=== PATIENT | male | born 1980 ===

== ENCOUNTER 2017-05-17 01:17 | Inpatient (IN) | payer OTHER ==
[2017-05-17 01:58] LABS: ADD MAN DIFF? NO
[2017-05-17] MEDS: ONDANSETRON 4 MG INJ IV ×4 (01:59→16:38)
[2017-05-17 02:00] LABS: WHITE BLOOD COUNT 16.5 10^3/ul (4.8-10.8)
[2017-05-17 02:00] LABS: BASOPHIL # 0.1 10^3/ul (0.0-0.1); BASOPHILS % 0.3 % (0.0-2.0); EOSINOPHILS # 0.1 10^3/ul (0.0-0.5); EOSINOPHILS % 0.3 % (0.0-7.0); HEMATOCRIT 46.4 % (42.0-52.0); HEMOGLOBIN 16.1 g/dl (14.0-18.0); LYMPHOCYTES # 2.2 10^3/ul (0.8-2.9); LYMPHOCYTES % 13.4 % (15.0-51.0); MEAN CORPUSCULAR HEMOGLOBIN 31.2 pg (29.0-33.0); MEAN CORPUSCULAR HGB CONC 34.7 g/dl (32.0-37.0); MEAN CORPUSCULAR VOLUME 89.9 fl (82.0-101.0); MEAN PLATELET VOLUME 9.5 fl (7.4-10.4); MONOCYTE # 0.9 10^3/ul (0.3-0.9); MONOCYTES % 5.4 % (0.0-11.0); NEUTROPHIL # 13.2 10^3/ul (1.6-7.5); NEUTROPHILS % 80.1 % (39.0-77.0); PLATELET COUNT 408 10^3/UL (140-415); RED BLOOD COUNT 5.16 10^6/ul (4.70-6.10); RED CELL DISTRIBUTION WIDTH 12.6 % (11.5-14.5)
[2017-05-17 02:24] LABS: ALANINE AMINOTRANSFERASE 96 IU/L (13-69); ALBUMIN 5.7 g/dl (3.3-4.9); ALBUMIN/GLOBULIN RATIO 1.26; ALKALINE PHOSPHATASE 134 IU/L (42-121); ANION GAP 26 (8-16); ASPARTATE AMINO TRANSFERASE 111 IU/L (15-46); BILIRUBIN,INDIRECT 1.3 mg/dl (0-1.1); BILIRUBIN,TOTAL 1.3 mg/dl (0.2-1.3); BLOOD UREA NITROGEN 22 mg/dl (7-20); CALCIUM 12.2 mg/dl (8.4-10.2); CARBON DIOXIDE 24 mmol/L (21-31); CHLORIDE 98 mmol/L (97-110); GLUCOSE 101 mg/dl (70-220); LIPASE 1370 U/L (23-300); POTASSIUM 3.2 mmol/L (3.5-5.1); SODIUM 145 mmol/L (135-144); TOTAL PROTEIN 10.2 g/dl (6.1-8.1)
[2017-05-17 02:29] LABS: ETHANOL < 10.0 mg/dl
[2017-05-17] MEDS: SOD CHLORIDE 0.9% 1,000 ML IV ×4 (02:29→22:27)
[2017-05-17] MEDS: LOPERAMIDE 2 MG CAP PO ×2 (02:30→02:32)
[2017-05-17] MEDS: HYDROmorphONE 1 MG/ML SYG IV ×2 (03:20→04:32)
[2017-05-17] MEDS: MEROPENEM 500MG/50 ML (PMX) 50 ML IVPB (04:38)
[2017-05-17] MEDS: POTASSIUM CHLORIDE 50 ML IVPB ×4 (05:02→10:59)
[2017-05-17] MEDS ORDERED: ACETAMINOPHEN 325 MG TAB PO (06:00)
[2017-05-17] MEDS ORDERED: NACL 0.9% 3 ML SYG IV (06:00)
[2017-05-17] MEDS: morphine 2 MG INJ IV ×3 (09:16→19:32)
[2017-05-17] MEDS ORDERED: METHADONE 10 MG TAB PO (10:30)
[2017-05-17] MEDS: METHADONE (1 MG/ML 5 ML PO UD SYG) PO ×2 (12:03→12:30)
[2017-05-17 12:14] LABS: LIPASE 302 U/L (23-300)
[2017-05-17 12:14] LABS: AMYLASE 147 U/L (11-123)
[2017-05-17] MEDS: METOCLOPRAMIDE 10 MG INJ IV (12:18)
[2017-05-17] MEDS: MULTIVITAMINS 10 ML, THIAMINE 100 MG, FOLIC ACID 1 MG in SOD CHLORIDE 0.9% 1,000 ML IVPB (13:01)
[2017-05-17] MEDS: LORAZEPAM 2 MG INJ IV (13:01)
[2017-05-17] MEDS: PANTOPRAZOLE IV 80 MG in SOD CHLORIDE 0.9% 100 ML IV (15:01)
[2017-05-17 15:32] LABS: ABNORMAL IP MESSAGE 1; HEMATOCRIT 44.6 % (42.0-52.0); HEMOGLOBIN 15.1 g/dl (14.0-18.0); MEAN CORPUSCULAR HEMOGLOBIN 31.4 pg (29.0-33.0); MEAN CORPUSCULAR HGB CONC 33.9 g/dl (32.0-37.0); MEAN CORPUSCULAR VOLUME 92.7 fl (82.0-101.0); MEAN PLATELET VOLUME 10.3 fl (7.4-10.4); POSITIVE DIFF @See below; RED BLOOD COUNT 4.81 10^6/ul (4.70-6.10); RED CELL DISTRIBUTION WIDTH 13.1 % (11.5-14.5)
[2017-05-17 15:32] LABS: WHITE BLOOD COUNT 20.7 10^3/ul (4.8-10.8)
[2017-05-17 15:38] LABS: PLATELET COUNT 326 10^3/UL (140-415)
[2017-05-17 15:39] LABS: ADD MAN DIFF? YES
[2017-05-17 15:49] LABS: ALANINE AMINOTRANSFERASE 78 IU/L (13-69); ALBUMIN 5.3 g/dl (3.3-4.9); ALBUMIN/GLOBULIN RATIO 1.43; ALKALINE PHOSPHATASE 106 IU/L (42-121); ANION GAP 28 (8-16); ASPARTATE AMINO TRANSFERASE 73 IU/L (15-46); BILIRUBIN,INDIRECT 0.7 mg/dl (0-1.1); BILIRUBIN,TOTAL 0.7 mg/dl (0.2-1.3); BLOOD UREA NITROGEN 12 mg/dl (7-20); CALCIUM 10.4 mg/dl (8.4-10.2); CARBON DIOXIDE 14 mmol/L (21-31); CHLORIDE 105 mmol/L (97-110); CREATININE 0.87 mg/dl (0.61-1.24); GLUCOSE 114 mg/dl (70-220); POTASSIUM 3.9 mmol/L (3.5-5.1); SODIUM 143 mmol/L (135-144)
[2017-05-17 16:09] LABS: BAND NEUTROPHILS #M 0.4 10^3/ul (0.0-0.6); BAND NEUTROPHILS % (M) 2 % (0-4); LYMPHOCYTES #M 0.4 10^3/ul (0.8-2.9); LYMPHOCYTES % (M) 2 % (15-51); PLATELET ESTIMATE INCREASED; SEGMENTED NEUTROPHILS (M) % 96 % (39-77); SMUDGE%M 3 % (0-0)
[2017-05-17 17:56] LABS: ADD UMIC YES; UR ASCORBIC ACID NEGATIVE (NEGATIVE); UR BACTERIA FEW /HPF (NONE SEEN); UR BILIRUBIN (Dip) NEGATIVE (NEGATIVE); UR BLOOD (Dip) NEGATIVE (NEGATIVE); UR CLARITY CLEAR (CLEAR); UR COLOR YELLOW (YELLOW); UR GLUCOSE (Dip) NEGATIVE (NEGATIVE); UR KETONES (Dip) 2+ mg/dL (NEGATIVE); UR LEUKOCYTE ESTERASE (Dip) NEGATIVE Leu/ul (NEGATIVE); UR MUCUS FEW /HPF (NONE SEEN); UR NITRITE (Dip) NEGATIVE (NEGATIVE); UR RBC 0 /HPF (0-5); UR SPECIFIC GRAVITY (Dip) 1.027 (1.003-1.030); UR TOTAL PROTEIN (Dip) 1+ mg/dl (NEGATIVE); UR UROBILINOGEN (Dip) NEGATIVE (NEGATIVE); UR WBC 1 /HPF (0-5)
[2017-05-17 18:25] LABS: AMPHETAMINE/METHAMPHETAMINE POSITIVE (NEGATIVE); BARBITURATES Negative (NEGATIVE); BENZODIAZEPINES Negative (NEGATIVE); CANNABINOIDS Negative (NEGATIVE); COCAINE Negative (NEGATIVE); OPIATES Positive (NEGATIVE)
[2017-05-18] MEDS: morphine 2 MG INJ IV ×3 (00:26→14:57)
[2017-05-18] MEDS: PANTOPRAZOLE IV 80 MG in SOD CHLORIDE 0.9% 100 ML IV ×3 (03:49→19:44)
[2017-05-18] MEDS: ONDANSETRON 4 MG INJ IV (04:48)
[2017-05-18 05:04] LABS: ADD MAN DIFF? NO
[2017-05-18 05:17] LABS: HEMOGLOBIN A1C 5.3 % (0-5.9)
[2017-05-18 05:20] LABS: WHITE BLOOD COUNT 19.6 10^3/ul (4.8-10.8)
[2017-05-18 05:20] LABS: BASOPHILS % 0.1 % (0.0-2.0); HEMATOCRIT 40.1 % (42.0-52.0); HEMOGLOBIN 13.5 g/dl (14.0-18.0); LYMPHOCYTES # 1.2 10^3/ul (0.8-2.9); LYMPHOCYTES % 6.2 % (15.0-51.0); MEAN CORPUSCULAR HEMOGLOBIN 31.8 pg (29.0-33.0); MEAN CORPUSCULAR HGB CONC 33.7 g/dl (32.0-37.0); MEAN CORPUSCULAR VOLUME 94.4 fl (82.0-101.0); MEAN PLATELET VOLUME 9.9 fl (7.4-10.4); MONOCYTE # 0.9 10^3/ul (0.3-0.9); MONOCYTES % 4.6 % (0.0-11.0); NEUTROPHIL # 17.4 10^3/ul (1.6-7.5); NEUTROPHILS % 88.6 % (39.0-77.0); PLATELET COUNT 329 10^3/UL (140-415); RED BLOOD COUNT 4.25 10^6/ul (4.70-6.10); RED CELL DISTRIBUTION WIDTH 13.6 % (11.5-14.5)
[2017-05-18 05:37] LABS: ALANINE AMINOTRANSFERASE 64 IU/L (13-69); ALBUMIN 4.8 g/dl (3.3-4.9); ALKALINE PHOSPHATASE 96 IU/L (42-121); ANION GAP 20 (8-16); ASPARTATE AMINO TRANSFERASE 58 IU/L (15-46); BLOOD UREA NITROGEN 13 mg/dl (7-20); CALCIUM 10.2 mg/dl (8.4-10.2); CARBON DIOXIDE 21 mmol/L (21-31); CHLORIDE 107 mmol/L (97-110); CHOL/HDL RATIO 3.5 RATIO; CHOLESTEROL 206 mg/dl (100-200); CREATININE 0.92 mg/dl (0.61-1.24); GLUCOSE 102 mg/dl (70-220); HDL CHOLESTEROL 58 mg/dl (28-63); LDL CHOLESTEROL,CALCULATED 129 mg/dl; MAGNESIUM 2.1 mg/dl (1.7-2.5); POTASSIUM 3.3 mmol/L (3.5-5.1); SODIUM 145 mmol/L (135-144); TOTAL PROTEIN 8.8 g/dl (6.1-8.1); TRIGLYCERIDES 93 mg/dl (0-149)
[2017-05-18] MEDS: SOD CHLORIDE 0.9% 1,000 ML IV ×2 (05:56→06:33)
[2017-05-18 05:58] LABS: LACTIC ACID 1.2 mmol/L (0.5-2.0)
[2017-05-18 06:05] LABS: THYROID STIMULATING HORMONE 0.095 MIU/L (0.465-4.680)
[2017-05-18 06:13] LABS: INR 0.97
[2017-05-18 06:14] LABS: PARTIAL THROMBOPLASTIN TIME 26.9 Sec (25.0-35.0)
[2017-05-18] MEDS: MULTIVITAMINS 10 ML, THIAMINE 100 MG, FOLIC ACID 1 MG in SOD CHLORIDE 0.9% 1,000 ML IVPB (08:42)
[2017-05-18] MEDS: METHADONE (1 MG/ML 5 ML PO UD SYG) PO (08:42)
[2017-05-18] MEDS: METOCLOPRAMIDE 10 MG INJ IV (08:43)
[2017-05-18 09:14] LABS: LIPASE 229 U/L (23-300)
[2017-05-18 09:14] LABS: AMYLASE 82 U/L (11-123)
[2017-05-18 09:32] LABS: FREE T4 (FREE THYROXINE) 1.07 ng/dl (0.79-2.35)
[2017-05-18] MEDS: PIPER-TAZO 3.375 GM IV (PMX) 100 ML IVPB ×3 (10:25→21:41)
[2017-05-18] MEDS: DIATR MEGLU/DIATRIZOATE SODIUM 120 ML BTL ×2 (10:47→11:31)
[2017-05-18] MEDS: POTASSIUM CHLORIDE 50 ML IVPB ×2 (13:51→15:43)
[2017-05-19] MEDS: PIPER-TAZO 3.375 GM IV (PMX) 100 ML IVPB ×3 (05:03→22:54)
[2017-05-19 05:09] LABS: ADD MAN DIFF? NO
[2017-05-19 05:21] LABS: BASOPHILS % 0.3 % (0.0-2.0); EOSINOPHILS % 0.3 % (0.0-7.0); HEMATOCRIT 38.9 % (42.0-52.0); HEMOGLOBIN 12.9 g/dl (14.0-18.0); LYMPHOCYTES # 2.2 10^3/ul (0.8-2.9); LYMPHOCYTES % 18.7 % (15.0-51.0); MEAN CORPUSCULAR HEMOGLOBIN 31.3 pg (29.0-33.0); MEAN CORPUSCULAR HGB CONC 33.2 g/dl (32.0-37.0); MEAN CORPUSCULAR VOLUME 94.4 fl (82.0-101.0); MEAN PLATELET VOLUME 10.1 fl (7.4-10.4); MONOCYTE # 0.7 10^3/ul (0.3-0.9); MONOCYTES % 5.4 % (0.0-11.0); NEUTROPHILS % 74.8 % (39.0-77.0); PLATELET COUNT 254 10^3/UL (140-415); RED BLOOD COUNT 4.12 10^6/ul (4.70-6.10)
[2017-05-19] MEDS: PANTOPRAZOLE IV 80 MG in SOD CHLORIDE 0.9% 100 ML IV (05:41)
[2017-05-19 05:45] LABS: ALANINE AMINOTRANSFERASE 51 IU/L (13-69); ALBUMIN 3.8 g/dl (3.3-4.9); ALBUMIN/GLOBULIN RATIO 1.35; ALKALINE PHOSPHATASE 70 IU/L (42-121); AMYLASE 126 U/L (11-123); ANION GAP 14 (8-16); ASPARTATE AMINO TRANSFERASE 39 IU/L (15-46); BILIRUBIN,INDIRECT 0.6 mg/dl (0-1.1); BILIRUBIN,TOTAL 0.6 mg/dl (0.2-1.3); BLOOD UREA NITROGEN 13 mg/dl (7-20); CALCIUM 9.3 mg/dl (8.4-10.2); CARBON DIOXIDE 24 mmol/L (21-31); CHLORIDE 103 mmol/L (97-110); CREATININE 0.84 mg/dl (0.61-1.24); GLUCOSE 163 mg/dl (70-220); LIPASE 434 U/L (23-300); POTASSIUM 3.4 mmol/L (3.5-5.1); SODIUM 138 mmol/L (135-144); TOTAL PROTEIN 6.6 g/dl (6.1-8.1)
[2017-05-19 05:47] LABS: MAGNESIUM 1.7 mg/dl (1.7-2.5)
[2017-05-19 05:47] LABS: PHOSPHORUS 2.3 mg/dl (2.5-4.9)
[2017-05-19] MEDS: MULTIVITAMINS 10 ML, THIAMINE 100 MG, FOLIC ACID 1 MG in SOD CHLORIDE 0.9% 1,000 ML IVPB (09:14)
[2017-05-19] MEDS: METHADONE (1 MG/ML 5 ML PO UD SYG) PO (09:15)
[2017-05-19] MEDS: FENTAnyl 50 MCG/ML VIAL (18:24)
[2017-05-19] MEDS: PROPOFOL 20 ML (18:24)
[2017-05-20] MEDS: PANTOPRAZOLE IV 80 MG in SOD CHLORIDE 0.9% 100 ML IV ×2 (00:35→11:13)
[2017-05-20 05:26] LABS: ADD MAN DIFF? NO
[2017-05-20 05:32] LABS: BASOPHILS % 0.3 % (0.0-2.0); EOSINOPHILS # 0.1 10^3/ul (0.0-0.5); EOSINOPHILS % 0.7 % (0.0-7.0); HEMATOCRIT 37.5 % (42.0-52.0); HEMOGLOBIN 12.7 g/dl (14.0-18.0); LYMPHOCYTES # 2.8 10^3/ul (0.8-2.9); LYMPHOCYTES % 26.6 % (15.0-51.0); MEAN CORPUSCULAR HEMOGLOBIN 31.7 pg (29.0-33.0); MEAN CORPUSCULAR HGB CONC 33.9 g/dl (32.0-37.0); MEAN CORPUSCULAR VOLUME 93.5 fl (82.0-101.0); MEAN PLATELET VOLUME 10.1 fl (7.4-10.4); MONOCYTE # 0.9 10^3/ul (0.3-0.9); MONOCYTES % 8.3 % (0.0-11.0); NEUTROPHIL # 6.6 10^3/ul (1.6-7.5); NEUTROPHILS % 63.6 % (39.0-77.0); PLATELET COUNT 243 10^3/UL (140-415); RED BLOOD COUNT 4.01 10^6/ul (4.70-6.10); RED CELL DISTRIBUTION WIDTH 12.8 % (11.5-14.5)
[2017-05-20 05:32] LABS: WHITE BLOOD COUNT 10.4 10^3/ul (4.8-10.8)
[2017-05-20] MEDS: PIPER-TAZO 3.375 GM IV (PMX) 100 ML IVPB ×2 (05:41→14:00)
[2017-05-20 06:04] LABS: ANION GAP 15 (8-16); BLOOD UREA NITROGEN 12 mg/dl (7-20); CALCIUM 9.4 mg/dl (8.4-10.2); CARBON DIOXIDE 29 mmol/L (21-31); CHLORIDE 101 mmol/L (97-110); CREATININE 0.95 mg/dl (0.61-1.24); GLUCOSE 95 mg/dl (70-220); MAGNESIUM 1.7 mg/dl (1.7-2.5); POTASSIUM 3.3 mmol/L (3.5-5.1); SODIUM 142 mmol/L (135-144)
[2017-05-20] MEDS: MULTIVITAMINS 10 ML, THIAMINE 100 MG, FOLIC ACID 1 MG in SOD CHLORIDE 0.9% 1,000 ML IVPB (08:37)
[2017-05-20] MEDS: METHADONE (1 MG/ML 5 ML PO UD SYG) PO (09:15)
[2017-05-20] MEDS: POTASSIUM CHLORIDE (SR) 10 MEQ TAB PO (18:09)
== END 2017-05-20 18:30 | disposition home or self-care (01) | DRG 388 ==
LOC: E/R 01:17 → MS1 05:46
PROC: 0DB68ZX Excision of Stomach, Via Natural or Artificial Opening Endoscopic, Diagnostic (ICD-10-PCS; principal; 2017-05-19 16:45)
PROC: 0DB78ZX Excision of Stomach, Pylorus, Via Natural or Artificial Opening Endoscopic, Diagnostic (ICD-10-PCS; 2017-05-19 16:45)
DX: K56.600 Partial intestinal obstruction, unspecified as to cause (principal); K85.20 Alcohol induced acute pancreatitis without necrosis or infection; K76.0 Fatty (change of) liver, not elsewhere classified; F11.20 Opioid dependence, uncomplicated; E83.52 Hypercalcemia; K22.10 Ulcer of esophagus without bleeding; F10.288 Alcohol dependence with other alcohol-induced disorder; I10 Essential (primary) hypertension; E87.6 Hypokalemia; F17.210 Nicotine dependence, cigarettes, uncomplicated; K29.70 Gastritis, unspecified, without bleeding; Z59.0 Homelessness
CPT/HCPCS: 36415; 71045; 74176; 74240; 74250; 76705; 80048; 80053; 80061; 80306; 80307; 81001; 82150; 83036; 83605; 83690; 83735; 84100; 84439; 84443; 85025; 85610; 85730; 87040; 87075; 87086; 87400; 88305; 88312; 96361; 96365; 96366; 96375; 96376; 99285-25